=== PATIENT | female | born 1935 | race Caucasian/White ===

== ENCOUNTER 2017-02-26 12:47 | Outpatient (CLI) | payer MEDICARE, OTHER ==
--- NOTE | 2017-02-26 19:46 | XRAY Report ---
CHEST PA AND LATERAL: 02/26/2017 CLINICAL HISTORY: Productive cough x2 weeks. COMPARISON: Chest CT 04/05/2016. 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 Minimal anterior spurring is noted in the thoraci c spine. Normal cardiac size is noted with mild prominence of the aortic arch related to atherosclerosis. Med iastinum is not widened. Pulmonary parenchyma demonstrates mild peribronchial thickening in the lowe r lobes. Peribronchial thickening appears more accentuated than on patient's prior CT exam. This rocha ggests that the findings are related to mild scarring in association with mild chronic bronchitis wit h mild acute exacerbation. A 1.4 cm x 1.6 cm well-circumscribed mass is once again seen in the lateral basilar segment of the le ft lower lobe. 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 This lesion is not significantl y changed in size. IMPRESSION: MILD PROGRESSION IN PERIBRONCHIAL THICKENING IN THE LOWER LOBES ARE SEEN COMPARED TO PREVIOUS CHES T CT EXAM OF 04/05/2016. FINDINGS MOST LIKELY ARE RESULT OF EXACERBATION OF CHRONIC BRONCHITIS. A 1.4 CM X 1.6 CM BENIGN HAMARTOMA IS ONCE AGAIN NOTED IN THE LEFT LOWER LOBE. JOB #: [id number] EXT JOB #:[id number]
== END 2017-02-26 12:48 | disposition home or self-care (01) ==
LOC: DI 12:47
PROVIDERS: ATTEND Physician Assistant
DX: R05 Cough (principal)
CPT/HCPCS: 71020